=== PATIENT | female | born 1980 | race Caucasian/White ===

== ENCOUNTER → 2022-03-14 | Outpatient (REF) | payer OTHER ==
[~2022-03-14] MED LIST: CYMB1CAP5; ILOTYCIN; NEUR100C; NEUR300C
[2022-03-14 16:43] LABS: BASO # 0.1 10^3/uL (0.0-0.2); EOS # 0.2 10^3/uL (0.0-0.5); EOS % 2.3 % (0.0-3.0); HEMATOCRIT 46.9 % (36.0-47.0); HEMOGLOBIN 15.6 g/dl (12.0-15.5); LYMPH # 3.5 10^3/uL (1.5-5.0); LYMPH % 35.2 % (24.0-44.0); MEAN CORPUSCULAR HEMOGLOBIN 29.3 pg (27.0-33.0); MEAN CORPUSCULAR HGB CONC 33.3 g/dl (32.0-36.5); MEAN CORPUSCULAR VOLUME 88.2 fl (80.0-96.0); MONO # 0.5 10^3/uL (0.0-0.8); MONO % 5.1 % (2.0-8.0); NEUTROPHILS # 5.6 10^3/uL (1.5-8.5); NEUTROPHILS % 56.1 % (36.0-66.0); PLATELET COUNT, AUTOMATED 340 10^3/uL (150-450); RED BLOOD COUNT 5.32 10^6/uL (4.00-5.40); WHITE BLOOD COUNT 9.9 10^3/uL (4.0-10.0)
[2022-03-14 17:14] LABS: ERYTHROCYTE SEDIMENTATION RATE 6 mm/hr (0-20)
[2022-03-14 18:08] LABS: ALBUMIN 3.4 GM/DL (3.2-5.2); ALT/SGPT 28 U/L (12-78); BILIRUBIN,TOTAL 0.5 MG/DL (0.2-1.0); BLOOD UREA NITROGEN 9 MG/DL (7-18); CARBON DIOXIDE LEVEL 23 MEQ/L (21-32); CHLORIDE LEVEL 109 MEQ/L (98-107); CREATININE FOR GFR 0.59 MG/DL (0.55-1.30); GLOMERULAR FILTRATION RATE > 60.0 (>58); GLUCOSE, FASTING 86 MG/DL (70-100); LDH LACTATE DEHYDROGENASE 172 U/L (84-246); POTASSIUM SERUM 4.3 MEQ/L (3.5-5.1); RHEUMATOID FACTOR QUANT < 10.0 IU/ML (<15.0); SODIUM LEVEL 137 MEQ/L (136-145); TOTAL PROTEIN 6.8 GM/DL (6.4-8.2)
== END ==
LOC: M SFHCRHEU 12:49
PROVIDERS: ATTEND Internal Medicine Rheumatology
DX: M35.3 Polymyalgia rheumatica (principal); H04.123 Dry eye syndrome of bilateral lacrimal glands; Z72.0 Tobacco use

== ENCOUNTER → 2022-05-09 | Outpatient (REF) | payer OTHER ==
[2022-05-09 14:10] LABS: BASO # 0.1 10^3/uL (0.0-0.2); BASO % 1.1 % (0.0-1.0); EOS # 0.2 10^3/uL (0.0-0.5); EOS % 2.5 % (0.0-3.0); HEMATOCRIT 47.1 % (36.0-47.0); HEMOGLOBIN 15.9 g/dl (12.0-15.5); LYMPH # 3.5 10^3/uL (1.5-5.0); LYMPH % 36.1 % (24.0-44.0); MEAN CORPUSCULAR HEMOGLOBIN 29.7 pg (27.0-33.0); MEAN CORPUSCULAR HGB CONC 33.8 g/dl (32.0-36.5); MEAN CORPUSCULAR VOLUME 87.9 fl (80.0-96.0); MONO # 0.5 10^3/uL (0.0-0.8); MONO % 5.3 % (2.0-8.0); NEUTROPHILS # 5.2 10^3/uL (1.5-8.5); NEUTROPHILS % 54.6 % (36.0-66.0); PLATELET COUNT, AUTOMATED 365 10^3/uL (150-450); RED BLOOD COUNT 5.36 10^6/uL (4.00-5.40); WHITE BLOOD COUNT 9.6 10^3/uL (4.0-10.0)
[2022-05-09 14:15] LABS: APPEARANCE, URINE MANUAL CLEAR (CLEAR); COLOR, URINE MANUAL YELLOW (YELLOW); GLUCOSE, URINE (UA) MANUAL NEGATIVE (NEGATIVE); KETONE, URINE MANUAL NEGATIVE (NEGATIVE); PROTEIN, URINE MANUAL TRACE mg/dL (NEGATIVE)
[2022-05-09 14:16] LABS: BILIRUBIN, URINE MANUAL NEGATIVE (NEGATIVE); BLOOD URINE MANUAL TRACE (NEGATIVE); LEUKOCYTE ESTERASE, URINE MAN NEGATIVE (NEGATIVE); NITRITE, URINE MANUAL NEGATIVE (NEGATIVE); UROBILINOGEN, URINE MANUAL NORMAL (NORMAL)
[2022-05-09 14:39] LABS: ERYTHROCYTE SEDIMENTATION RATE 5 mm/hr (0-20)
[2022-05-09 14:40] LABS: TOTAL PROTEIN,RANDOM URINE 10.7 MG/DL (0.0-12.0)
[2022-05-09 14:41] LABS: SQUAMOUS EPITHELIAL CELL URINE LARGE AMOUNT /hpf (SMALL AMT)
[2022-05-09 14:42] LABS: BACTERIA, URINE MOD AMOUNT; RBC, URINE 0-1 /hpf (0-3)
[2022-05-09 14:44] LABS: ALBUMIN 3.6 GM/DL (3.2-5.2); ALT/SGPT 28 U/L (12-78); BILIRUBIN,TOTAL 0.3 MG/DL (0.2-1.0); BLOOD UREA NITROGEN 9 MG/DL (7-18); CALCIUM LEVEL 9.2 MG/DL (8.5-10.1); CARBON DIOXIDE LEVEL 24 MEQ/L (21-32); CHLORIDE LEVEL 105 MEQ/L (98-107); COMPLEMENT C3 145 MG/DL (90-180); COMPLEMENT C4 30 MG/DL (10-40); CREATININE FOR GFR 0.54 MG/DL (0.55-1.30); GLOMERULAR FILTRATION RATE > 60.0 (>58); GLUCOSE, FASTING 72 MG/DL (70-100); POTASSIUM SERUM 4.5 MEQ/L (3.5-5.1); SODIUM LEVEL 134 MEQ/L (136-145); TOTAL PROTEIN 7.4 GM/DL (6.4-8.2)
== END ==
LOC: M SFHCRHEU 12:05
PROVIDERS: ATTEND Internal Medicine Rheumatology
DX: M35.3 Polymyalgia rheumatica (principal); H04.123 Dry eye syndrome of bilateral lacrimal glands; Z72.0 Tobacco use; R76.8 Other specified abnormal immunological findings in serum; Z15.89 Genetic susceptibility to other disease